=== PATIENT | male | born 1985 | race African-American/Black ===

== ENCOUNTER 2017-08-15 14:43 | Emergency (ER) | payer SELFPAY ==
[~2017-08-15] VITALS: Ht 175.3 cm; Wt 71.2 kg
--- NOTE | 2017-08-15 15:25 | NUR ---
PATIENT WAS SEEN AND EVAL BY DR BARRIOS IN ROOM 04A.
--- NOTE | 2017-08-15 15:39 | NUR ---
Patient discharged to home in stable conditon. Written and verbal after care instructions given. Patient verbalizes understanding of instructions.
[2017-08-15 15:40] VITALS: BP 112/64
== END 2017-08-15 15:43 | disposition home or self-care (01) ==
LOC: ER 14:43
DX: J45.909 Unspecified asthma, uncomplicated (principal)
CPT/HCPCS: 99283; A4663